=== PATIENT | male | born 1960 | race Caucasian/White ===

== ENCOUNTER 2016-12-22 23:56 | Emergency (ER) | payer BC ==
[2016-12-22] MEDS ORDERED: ONDANSETRON 4 MG/2 ML VIAL IVP STA (23:59)
[2016-12-22] MEDS ORDERED: HYDROmorphone 1 MG/ML 1 ML SYRINGE IVP STA (23:59)
[2016-12-22] MEDS ORDERED: SODIUM CHLORIDE 0.9% 1,000 ML IV STA ×2 (23:59)
[2016-12-22] MEDS ORDERED: LORazepam 2 MG/ML SYRINGE IV STA (23:59)
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
[2016-12-23 00:04] LABS: Glucose,Whole Blood 111 mg/dL (75-99)
[2016-12-23 00:15] VITALS: RESP 20
[2016-12-23 00:20] LABS: Appearance,Urine Clear (Clear); Bilirubin,Urine Negative (Negative); Glucose,Urine (UA) Negative (Negative); Ketones,Urine Negative (Negative); Leukocyte Esterase,Urine Negative (Negative); Nitrite,Urine Negative (Negative); Protein,Urine Negative (Negative); Specific Gravity,Urine 1.007 (1.001-1.035); UA Billing (MACRO vs. MICRO) CHEM; Urobilinogen,Urine <2.0 mg/dL (<2.0)
[2016-12-23 00:23] LABS: Basophils % (A) 0 %; CH 32.4; Eosinophils % (A) 0 %; HCT 54.3 % (39.0-53.0); HDW 2.67; HGB 17.7 gm/dL (13.0-17.5); Luc % (Auto) 1; Lymphocytes # (A) 1.9 k/uL (1.0-4.8); Lymphocytes % (A) 19 %; MCH 32.2 pg (25.0-35.0); MCHC 32.6 g/dL (31.0-37.0); MCV 98.7 fL (80.0-100.0); Mean Platelet Volume 7.6; Monocytes # (A) 0.3 k/uL (0-1.0); Monocytes % (A) 3 %; Neutrophils # (A) 7.8 k/uL (1.3-7.7); Neutrophils % (A) 77 %; RDW 15.2 % (11.5-15.5); WBC 10.1 k/uL (3.8-10.6)
[2016-12-23 00:27] LABS: ALT 48 U/L (21-72); AST 49 U/L (17-59); Alkaline Phosphatase 89 U/L (38-126); Amylase 56 U/L (30-110); Anion Gap 15 mmol/L; Blood Urea Nitrogen 24 mg/dL (9-20); Calcium 9.6 mg/dL (8.4-10.2); Carbon Dioxide 19 mmol/L (22-30); Chloride 112 mmol/L (98-107); Glucose 111 mg/dL (74-99); Non-African American GFR(MDRD) >60 (>60 ml/min/1.73 sqM); Potassium 4.7 mmol/L (3.5-5.1); Sodium 146 mmol/L (137-145); Total Bilirubin 0.7 mg/dL (0.2-1.3); Total Protein 7.3 g/dL (6.3-8.2)
[2016-12-23 00:31] LABS: INR 1.1 (<1.1); Partial Thromboplastin Time 22.3 sec (22.0-30.0); Prothrombin Time 10.8 sec (9.0-12.0)
[2016-12-23 00:33] LABS: Alcohol 181 mg/dL
[2016-12-23 00:41] LABS: Creatine Kinase 146 U/L (55-170)
[2016-12-23 00:54] LABS: Creatine Kinase MB 1.6 ng/mL (0.0-2.4); Troponin I <0.012 ng/mL (0.000-0.034)
[2016-12-23 02:24] VITALS: BP 147/69; PULSE 78; TEMP 97.8
== END 2016-12-23 02:08 | disposition short-term general hospital (02) ==
LOC: EC 23:56
DX: T23.202A Burn of second degree of left hand, unspecified site, initial encounter (principal); T23.201A Burn of second degree of right hand, unspecified site, initial encounter; T24.202A Burn of second degree of unspecified site of left lower limb, except ankle and foot, initial encounter; T20.13XA Burn of first degree of chin, initial encounter; T23.172A Burn of first degree of left wrist, initial encounter; T31.0 Burns involving less than 10% of body surface; F17.200 Nicotine dependence, unspecified, uncomplicated; Z79.899 Other long term (current) drug therapy; Z88.0 Allergy status to penicillin; X14.1XXA Other contact with hot air and other hot gases, initial encounter
CPT/HCPCS: 99285; 96374; 96375 ×2; 96361; 36415 ×2; 93005; 86900; 86901; 80053; 82150; 82550; 82553; 83690; 84484; 85025; 85610; 85730; 86850; 81003; 80306; 80320; J2060; J2405; J1170